=== PATIENT | male | born 1940 | race Caucasian/White ===

== ENCOUNTER 2020-11-06 13:56 | Emergency (ER) | payer OTHER ==
[~2020-11-06] VITALS: Ht 170.2 cm; Wt 90.7 kg
[2020-11-06 14:00] VITALS: BP_SYST 78
--- NOTE | 2020-11-06 14:00 | NUR ---
DROPPED OFF BY [employer] AND PT BROUGHT BACK TO BED #6, TRIAGED. REPORT GIVEN TO CHARLES
--- NOTE | 2020-11-06 14:09 | NUR ---
Placed in room 06 . Placed on frothing machine operator, blood pressure machine and pulse oximeter. To gown for exam. Side rails up.
--- NOTE | 2020-11-06 14:12 | NUR ---
Pt brought by meredith for medical clearance prior going to [facility], pt behavioral, pt is weak, drowsy, respirations even and unlabored, skin pink and warm, cap refill <3, VSS
--- NOTE | 2020-11-06 14:13 | NUR ---
Dr Blum evaluating patient at bedside
[2020-11-06] MEDS ORDERED: NACL 0.9% 1,000 ML IV ONE (14:30)
--- NOTE | 2020-11-06 14:35 | NUR ---
pt. altaf [facility] for medical clearance for admission to [facility], was rported pt. has been lashing out at staff and combative, grandson at bedside states he was called by the facility and psychiatrist to inform him of transfer to [facility].
--- NOTE | 2020-11-06 14:46 | NUR ---
covid and MRSA swab done
--- NOTE | 2020-11-06 15:24 | NUR ---
[phone]
--- NOTE | 2020-11-06 16:01 | NUR ---
pt. resting comfortably, no signs of agitation
[2020-11-06 16:09] LABS: BASOPHILS % (AUTO) 0.7 % (0.0-2.0); EOSINOPHILS # (AUTO) 0.2 K/uL (0.0-0.4); EOSINOPHILS % (AUTO) 3.3 % (0.0-4.0); HEMATOCRIT 36.2 % (36-54); HEMOGLOBIN 12.1 g/dL (14.0-18.0); LYMPHOCYTES # (AUTO) 1.7 K/uL (1.0-5.5); LYMPHOCYTES % (AUTO) 29.8 % (20.5-51.5); MEAN CORPUSCULAR HEMOGLOBIN 33 pg (27-31); MEAN CORPUSCULAR HGB CONC 33 % (32-36); MEAN CORPUSCULAR VOLUME 98 fL (79.0-98.0); MONOCYTES # (AUTO) 0.6 K/uL (0.0-1.0); MONOCYTES % (AUTO) 10.5 % (1.7-9.3); NEUTROPHILS # (AUTO) 3.3 K/uL (1.8-7.7); NEUTROPHILS % (AUTO) 55.7 % (40.0-70.0); PLATELET COUNT (AUTO) 206 K/uL (130-430); RED BLOOD CELL COUNT(AUTO) 3.72 MIL/uL (4.2-6.2); WHITE BLOOD COUNT (AUTO) 5.8 K/uL (4.8-10.8)
[2020-11-06 16:21] LABS: ANION GAP 9 (5-15); CALCIUM 8.8 mg/dL (8.4-11.0); CHLORIDE 108 mmol/L (98-107); GLUCOSE 110 mg/dL (70-99); POTASSIUM 4.1 mmol/L (3.5-5.1); SODIUM SERUM 145 mmol/L (136-145); UREA NITROGEN, BLOOD 39 mg/dL (8-21)
[2020-11-06 16:27] LABS: ALANINE AMINOTRANSFERASE 26 U/L (12-78); ALBUMIN 3.1 g/dL (3.4-4.8); ASPARTATE AMINOTRANSFERASE 16 U/L (10-37); TOTAL BILIRUBIN 0.3 mg/dL (0.0-1.0)
[2020-11-06 16:33] LABS: ACETAMINOPHEN < 1 ug/mL (1-30); ALCOHOL, BLOOD < 3 mg/dL (<10)
--- NOTE | 2020-11-06 20:42 | NUR ---
Patient is sleeping , no acute distress.
--- NOTE | 2020-11-06 21:28 | NUR ---
Patient to be transferred to [facility]. Is being transferred due to higher level of care. Receiving facility has accepting physician and available space. ER physician has signed transfer form. Patient or responsible alliance party has agreed to transfer and signed form. Patient belongings inventoried and will be sent with patient. Copy of nursing notes, lab reports, EKG, Physicians Orders and X-rays to be sent with patient. Report called to BELLA Conklin at receiving facility. Receiving physician is Dr. Morejon. [facility] ambulance service has been called for transfer. ETA is 30 minutes.
[2020-11-06 22:33] VITALS: BP_SYST 126
--- NOTE | 2020-11-06 22:33 | NUR ---
Patient will transfer to [facility] room 55A with [facility].
--- NOTE | 2020-11-06 22:41 | NUR ---
Spoke with BELLA Conklin (Tory Javier) , patient will be admission to Room 61 A (change room number).
[2020-11-06 23:16] LABS: BARBITURATE, URINE NEGATIVE (NEG <=200)
[2020-11-06 23:17] LABS: BENZODIAZEPINE, URINE POSITIVE (NEG <=150); CANNABINOID, URINE NEGATIVE (NEG <=50); COCAINE, URINE NEGATIVE (NEG <=150); METHAMPHETAMINES SCREEN,URINE NEGATIVE (NEG <=500); OPIATE, URINE NEGATIVE (NEG <=100); PHENCYCLIDINE SCREEN,URINE NEGATIVE (NEG <=25); UR TRICYCLIC ANTIDEPRESSANTS POSITIVE (NEG <=300); URINE AMPHETAMINE NEGATIVE (NEG <=500); URINE METHADONE NEGATIVE (NEG <=200); URINE OXYCODONE SCREEN NEGATIVE (NEG <=100); URINE PROPOXYPHENE SCREEN NEGATIVE (NEG <=300)
--- NOTE | 2020-11-08 19:29 | NUR ---
Spoke w/ Rubin from [facility], made RN aware that the pt is MRSA positive. Results faxed over to [phone]
== END 2020-11-06 22:33 ==
LOC: SED 13:56
DX: R45.6 Violent behavior (principal); N18.9 Chronic kidney disease, unspecified; I10 Essential (primary) hypertension; Z79.899 Other long term (current) drug therapy; Z20.822 Contact with and (suspected) exposure to COVID-19
CPT/HCPCS: 36415; 71045; 80053; 80307; 85025; 87081; 87426; 93005; 96360; 99285; G0480; J7030; G0481; G0482